=== PATIENT | female | born 1965 | race Caucasian/White ===

== ENCOUNTER 2016-11-18 03:08 | Inpatient (IN) | payer OTHER ==
[~2016-11-18] VITALS: Ht 162.6 cm; Wt 103.6 kg
[2016-11-18] MEDS ORDERED: NEURONTIN 300300 MG PO (04:18)
[2016-11-18] MEDS ORDERED: NOVOLIN 70100 UNIT/1 SQ (04:19)
[2016-11-18] MEDS ORDERED: NOVOLOG MI100 UNIT/2 SQ ×2 (04:19→04:25)
[2016-11-18] MEDS ORDERED: VENTOLIN HFA 66.7 GM INH (04:20)
[2016-11-18] MEDS ORDERED: LASIX 40 MG TAB40 MG PO (04:20)
[2016-11-18] MEDS ORDERED: BREO ELLIPTA 11 EACH INH (04:20)
[2016-11-18] MEDS ORDERED: KLOR-CON M1010 MEQ PO (04:21)
[2016-11-18] MEDS ORDERED: ZANTAC150 MG PO (04:21)
[2016-11-18] MEDS ORDERED: SYMBICORT 160-1 INHA INH (04:22)
[2016-11-18] MEDS ORDERED: COZAAR25 MG PO (04:24)
[2016-11-18] MEDS ORDERED: BUSPIRONE HCL15 MG PO (04:24)
[2016-11-18] MEDS ORDERED: IPRAT-ALBUT 0.5-3 ML INH (04:27)
[2016-11-18] MEDS ORDERED: CELEXA40 MG PO (04:30)
[2016-11-18 11:46] LABS: BUN/CREATININE RATIO 26 (0-10)
[2016-11-18 12:36] LABS: HEMOGLOBIN 9.6 gm/dl (12.3-15.3); RED BLOOD COUNT 2.96 M/UL (4.00-5.10); WHITE BLOOD COUNT 2.3 K/UL (4.5-11.0)
[2016-11-18 13:48] LABS: LDH, BODY FLUID 52 U/L; TOTAL PROTEIN, BODY FLUID 0.8 gm/dL
[2016-11-18 14:44] LABS: BODY FLUID SOURCE PLEURAL
[2016-11-19 03:54] LABS: HEMOGLOBIN 9.7 gm/dl (12.3-15.3); RED BLOOD COUNT 3.05 M/UL (4.00-5.10); WHITE BLOOD COUNT 7.3 K/UL (4.5-11.0)
[2016-11-19 04:10] LABS: BUN/CREATININE RATIO 19 (0-10)
[2016-11-20 04:30] LABS: BUN/CREATININE RATIO 20 (0-10)
[2016-11-20 04:41] LABS: HEMOGLOBIN 9.3 gm/dl (12.3-15.3); RED BLOOD COUNT 2.92 M/UL (4.00-5.10)
[2016-11-20 04:44] LABS: WHITE BLOOD COUNT 4.7 K/UL (4.5-11.0)
== END 2016-11-21 14:43 | disposition home health service (06) | DRG 291 ==
LOC: MED SURG 4 04:16 → PROG CARE 04:16 → MED SURG 4 11-19 10:42
PROVIDERS: Hospitalist; Nurse Practitioner; ADMIT Internal Medicine
PROC: 0W993ZZ Drainage of Right Pleural Cavity, Percutaneous Approach (ICD-10-PCS; principal; 2016-11-18)
DX: I11.0 Hypertensive heart disease with heart failure (principal); J96.01 Acute respiratory failure with hypoxia; J81.1 Chronic pulmonary edema; J90 Pleural effusion, not elsewhere classified; Z68.41 Body mass index [BMI] 40.0-44.9, adult; J44.1 Chronic obstructive pulmonary disease with (acute) exacerbation; D61.818 Other pancytopenia; I50.33 Acute on chronic diastolic (congestive) heart failure; D50.9 Iron deficiency anemia, unspecified; E11.649 Type 2 diabetes mellitus with hypoglycemia without coma; E11.40 Type 2 diabetes mellitus with diabetic neuropathy, unspecified; F32.9 Major depressive disorder, single episode, unspecified; B18.2 Chronic viral hepatitis C; D69.6 Thrombocytopenia, unspecified; Z51.89 Encounter for other specified aftercare; R53.81 Other malaise; K21.9 Gastro-esophageal reflux disease without esophagitis; F41.9 Anxiety disorder, unspecified; Z87.01 Personal history of pneumonia (recurrent); K76.9 Liver disease, unspecified; E66.01 Morbid (severe) obesity due to excess calories; Z99.81 Dependence on supplemental oxygen; Z80.9 Family history of malignant neoplasm, unspecified; Z87.891 Personal history of nicotine dependence; Z88.0 Allergy status to penicillin; Z88.2 Allergy status to sulfonamides; Z79.899 Other long term (current) drug therapy; Z79.4 Long term (current) use of insulin
CPT/HCPCS: ECHO; 36415; 71010; 71020; 76705; 80048; 80053; 81001; 82150; 82607; 82728; 82746; 82945; 82962; 83540; 83615; 83735; 83880; 83986; 84075; 84157; 84443; 85027; 85045; 85610; 86039; 87040; 87070; 87390; 89051; 93306; 94640; 97110; 97535; J1756; J1940; J1956; J7050

== ENCOUNTER → 2017-01-02 | Outpatient (CLI) | payer OTHER ==
[~2017-01-02] MED LIST: ADVAIR 250-501 EACH INH; BREO ELLIPTA 11 EACH INH; BUSPIRONE HCL15 MG PO; CELEXA40 MG PO; COZAAR25 MG PO; FERROUS SULFAT325 MG PO; IPRAT-ALBUT 0.5-3 ML INH; KLOR-CON M1010 MEQ PO; LASIX 40 MG TAB40 MG PO; NEURONTIN 300300 MG PO; NOVOLIN 70100 UNIT/1 SQ; NOVOLOG MI100 UNIT/2 SQ; SYMBICORT 160-1 INHA INH; VENTOLIN HFA 66.7 GM INH; ZANTAC150 MG PO; ZESTRIL5 MG PO
== END ==
LOC: EXRD 10:58
DX: J90 Pleural effusion, not elsewhere classified (principal); R91.8 Other nonspecific abnormal finding of lung field
CPT/HCPCS: 71020

== ENCOUNTER → 2017-01-02 | Outpatient (CLI) | payer OTHER | LOC: HEART 5 09:30 | DX: R06.02 Shortness of breath (principal) | CPT/HCPCS: 94060; 94729 ==

== ENCOUNTER 2017-01-17 20:43 | Inpatient (IN) | payer OTHER ==
[~2017-01-17] VITALS: Ht 162.6 cm; Wt 98.4 kg
[~2017-01-17 20:43] MED LIST changes: -ADVAIR 250-501 EACH INH; -FERROUS SULFAT325 MG PO; -ZESTRIL5 MG PO
[2017-01-17] MEDS ORDERED: ZESTRIL5 MG PO (23:44)
[2017-01-17] MEDS ORDERED: FERROUS SULFAT325 MG PO (23:45)
[2017-01-17] MEDS ORDERED: NEURONTIN 300300 MG PO (23:54)
[2017-01-17] MEDS ORDERED: ADVAIR 250-501 EACH INH (23:54)
[2017-01-18 01:29] LABS: HEMOGLOBIN 9.9 gm/dl (12.3-15.3)
[2017-01-18 06:13] LABS: HEMOGLOBIN 10.2 gm/dl (12.3-15.3); RED BLOOD COUNT 3.09 M/UL (4.00-5.10); WHITE BLOOD COUNT 15.3 K/UL (4.5-11.0)
[2017-01-19 03:46] LABS: HEMOGLOBIN 10.7 gm/dl (12.3-15.3); RED BLOOD COUNT 3.25 M/UL (4.00-5.10)
[2017-01-19 09:45] LABS: HEMOGLOBIN 10.3 gm/dl (12.3-15.3)
[2017-01-19 17:14] LABS: HEMOGLOBIN 10.1 gm/dl (12.3-15.3)
[2017-01-20 01:06] LABS: HEMOGLOBIN 10.1 gm/dl (12.3-15.3)
[2017-01-20 03:48] LABS: HEMOGLOBIN 9.9 gm/dl (12.3-15.3); RED BLOOD COUNT 3.03 M/UL (4.00-5.10)
[2017-01-20 04:03] LABS: WHITE BLOOD COUNT 17.7 K/UL (4.5-11.0)
[2017-01-20 09:21] LABS: HEMOGLOBIN 9.9 gm/dl (12.3-15.3)
[2017-01-20 21:40] LABS: HEMOGLOBIN 9.8 gm/dl (12.3-15.3)
[2017-01-21 04:00] LABS: HEMOGLOBIN 9.6 gm/dl (12.3-15.3); RED BLOOD COUNT 2.91 M/UL (4.00-5.10); WHITE BLOOD COUNT 16.9 K/UL (4.5-11.0)
[2017-01-21 08:59] LABS: HEMOGLOBIN 9.9 gm/dl (12.3-15.3)
[2017-01-22 03:21] LABS: HEMOGLOBIN 10.2 gm/dl (12.3-15.3); RED BLOOD COUNT 3.06 M/UL (4.00-5.10); WHITE BLOOD COUNT 14.8 K/UL (4.5-11.0)
[2017-01-23 03:12] LABS: HEMOGLOBIN 10.2 gm/dl (12.3-15.3); RED BLOOD COUNT 3.13 M/UL (4.00-5.10)
[2017-01-24 04:49] LABS: HEMOGLOBIN 10.5 gm/dl (12.3-15.3); RED BLOOD COUNT 3.17 M/UL (4.00-5.10); WHITE BLOOD COUNT 18.2 K/UL (4.5-11.0)
--- NOTE | 2017-01-24 11:52 | NUR ---
BRIEF O2 DESATURATION AT 0800 WITH TURN. SAT DOWN TO 71%, BACK UP TO 89% WITHIN 3-[address] GOMEZ HERE, AWARE. AGAIN AT 0855 PT DESATURATED SPONTANEOUSLY. 02 SAT 78-89% FROM 9523-1712. DR. GOMEZ AGAIN NOTIFIED, ATIVAN GIVEN ORDERED. DR. DELAROSA HERE AND MORPHINE GIVEN PER OCT. PT AMBU AND LAVAGED/SUCTIONED ETT AND REPOSITIONED TO HIGH FOWLERS POSITION. DR. GOMEZ BACK AT BEDSIDE AT 0945 AND ZEMURON GIVEN. O2 SAT UP TO 95% WITHIN 2 MINUTES. ORDER TO START ZEMURON DRIP PER PROTOCOL.
[2017-01-25 03:54] LABS: HEMOGLOBIN 9.7 gm/dl (12.3-15.3); RED BLOOD COUNT 2.86 M/UL (4.00-5.10); WHITE BLOOD COUNT 16.5 K/UL (4.5-11.0)
[2017-01-25 16:33] LABS: HEMOGLOBIN 8.6 gm/dl (12.3-15.3); RED BLOOD COUNT 2.61 M/UL (4.00-5.10)
[2017-01-25 16:36] LABS: WHITE BLOOD COUNT 10.2 K/UL (4.5-11.0)
[2017-01-25 20:54] LABS: HEMOGLOBIN 8.4 gm/dl (12.3-15.3); RED BLOOD COUNT 2.57 M/UL (4.00-5.10)
[2017-01-26 03:46] LABS: HEMOGLOBIN 10.1 gm/dl (12.3-15.3)
[2017-01-26 03:48] LABS: RED BLOOD COUNT 3.2 M/UL (4.00-5.10)
[2017-01-27 03:42] LABS: HEMOGLOBIN 10.3 gm/dl (12.3-15.3); RED BLOOD COUNT 3.25 M/UL (4.00-5.10); WHITE BLOOD COUNT 11.8 K/UL (4.5-11.0)
[2017-01-28 03:31] LABS: HEMOGLOBIN 10.8 gm/dl (12.3-15.3); RED BLOOD COUNT 3.44 M/UL (4.00-5.10)
[2017-01-29 03:50] LABS: HEMOGLOBIN 11.4 gm/dl (12.3-15.3); RED BLOOD COUNT 3.58 M/UL (4.00-5.10); WHITE BLOOD COUNT 22.9 K/UL (4.5-11.0)
[2017-01-29 04:02] LABS: BUN/CREATININE RATIO 72 (0-10)
[2017-01-30 04:15] LABS: HEMOGLOBIN 11.3 gm/dl (12.3-15.3); RED BLOOD COUNT 3.54 M/UL (4.00-5.10); WHITE BLOOD COUNT 22.1 K/UL (4.5-11.0)
[2017-01-31 03:37] LABS: HEMOGLOBIN 11.1 gm/dl (12.3-15.3); RED BLOOD COUNT 3.47 M/UL (4.00-5.10); WHITE BLOOD COUNT 21.9 K/UL (4.5-11.0)
[2017-02-01 04:04] LABS: HEMOGLOBIN 11.7 gm/dl (12.3-15.3); RED BLOOD COUNT 3.61 M/UL (4.00-5.10)
[2017-02-01 19:28] LABS: URINE CREATININE 62.4 mg/dL
[2017-02-02 04:32] LABS: HEMOGLOBIN 11.7 gm/dl (12.3-15.3); RED BLOOD COUNT 3.62 M/UL (4.00-5.10); WHITE BLOOD COUNT 17.7 K/UL (4.5-11.0)
[2017-02-03 05:00] LABS: HEMOGLOBIN 11.6 gm/dl (12.3-15.3); RED BLOOD COUNT 3.54 M/UL (4.00-5.10); WHITE BLOOD COUNT 14.3 K/UL (4.5-11.0)
[2017-02-04 04:40] LABS: HEMOGLOBIN 11.1 gm/dl (12.3-15.3); RED BLOOD COUNT 3.41 M/UL (4.00-5.10); WHITE BLOOD COUNT 17.3 K/UL (4.5-11.0)
[2017-02-04 15:51] LABS: HEMOGLOBIN 11.1 gm/dl (12.3-15.3); RED BLOOD COUNT 3.44 M/UL (4.00-5.10); WHITE BLOOD COUNT 17.8 K/UL (4.5-11.0)
[2017-02-04 17:17] LABS: HEMOGLOBIN 9.8 gm/dl (12.3-15.3)
[2017-02-04 23:08] LABS: HEMOGLOBIN 9.9 gm/dl (12.3-15.3)
[2017-02-05 05:05] LABS: HEMOGLOBIN 9.8 gm/dl (12.3-15.3); RED BLOOD COUNT 3.02 M/UL (4.00-5.10); WHITE BLOOD COUNT 17.3 K/UL (4.5-11.0)
[2017-02-05 11:06] LABS: HEMOGLOBIN 9.5 gm/dl (12.3-15.3)
[2017-02-06 03:32] LABS: HEMOGLOBIN 8.9 gm/dl (12.3-15.3); RED BLOOD COUNT 2.74 M/UL (4.00-5.10)
[2017-02-06 03:37] LABS: WHITE BLOOD COUNT 24.1 K/UL (4.5-11.0)
[2017-02-06 14:02] LABS: HEMOGLOBIN 7.6 gm/dl (12.3-15.3); WHITE BLOOD COUNT 24.5 K/UL (4.5-11.0)
[2017-02-06 14:08] LABS: RED BLOOD COUNT 2.33 M/UL (4.00-5.10)
== END 2017-02-06 18:10 | disposition expired | DRG 870 ==
LOC: MED SURG 4 20:43 → CCU 23:02
PROVIDERS: Hospitalist; Internal Medicine; Internal Medicine Critical Care Medicine; Internal Medicine Nephrology; Internal Medicine Pulmonary Disease; ADMIT Internal Medicine
PROC: 05HM33Z Insertion of Infusion Device into Right Internal Jugular Vein, Percutaneous Approach (ICD-10-PCS; 2017-01-19)
PROC: 5A1955Z Respiratory Ventilation, Greater than 96 Consecutive Hours (ICD-10-PCS; principal; 2017-01-23)
PROC: 0BH17EZ Insertion of Endotracheal Airway into Trachea, Via Natural or Artificial Opening (ICD-10-PCS; 2017-01-23)
PROC: 3E0436Z Introduction of Nutritional Substance into Central Vein, Percutaneous Approach (ICD-10-PCS; 2017-01-24)
PROC: 30233N1 Transfusion of Nonautologous Red Blood Cells into Peripheral Vein, Percutaneous Approach (ICD-10-PCS; 2017-01-25)
PROC: 30233R1 Transfusion of Nonautologous Platelets into Peripheral Vein, Percutaneous Approach (ICD-10-PCS; 2017-01-25)
PROC: 30233R1 Transfusion of Nonautologous Platelets into Peripheral Vein, Percutaneous Approach (ICD-10-PCS; 2017-01-27)
PROC: 4A10X4Z Monitoring of Central Nervous Electrical Activity, External Approach (ICD-10-PCS; 2017-02-01)
PROC: 30233K1 Transfusion of Nonautologous Frozen Plasma into Peripheral Vein, Percutaneous Approach (ICD-10-PCS; 2017-02-02)
PROC: 30233R1 Transfusion of Nonautologous Platelets into Peripheral Vein, Percutaneous Approach (ICD-10-PCS; 2017-02-03)
PROC: 30233K1 Transfusion of Nonautologous Frozen Plasma into Peripheral Vein, Percutaneous Approach (ICD-10-PCS; 2017-02-04)
PROC: 30233K1 Transfusion of Nonautologous Frozen Plasma into Peripheral Vein, Percutaneous Approach (ICD-10-PCS; 2017-02-06)
DX: A41.9 Sepsis, unspecified organism (principal); J96.01 Acute respiratory failure with hypoxia; J18.9 Pneumonia, unspecified organism; R65.21 Severe sepsis with septic shock; N17.0 Acute kidney failure with tubular necrosis; K72.00 Acute and subacute hepatic failure without coma; E43 Unspecified severe protein-calorie malnutrition; G92 Toxic encephalopathy; R04.2 Hemoptysis; I13.0 Hypertensive heart and chronic kidney disease with heart failure and stage 1 through stage 4 chronic kidney disease, or unspecified chronic kidney disease; I50.32 Chronic diastolic (congestive) heart failure; N39.0 Urinary tract infection, site not specified; N17.9 Acute kidney failure, unspecified; C34.12 Malignant neoplasm of upper lobe, left bronchus or lung; E87.1 Hypo-osmolality and hyponatremia; R18.8 Other ascites; K76.6 Portal hypertension; N13.30 Unspecified hydronephrosis; E66.2 Morbid (severe) obesity with alveolar hypoventilation; E87.2 Acidosis; K62.5 Hemorrhage of anus and rectum; E27.40 Unspecified adrenocortical insufficiency; D62 Acute posthemorrhagic anemia; I95.9 Hypotension, unspecified; Z90.710 Acquired absence of both cervix and uterus; K21.9 Gastro-esophageal reflux disease without esophagitis; F41.9 Anxiety disorder, unspecified; K76.9 Liver disease, unspecified; J44.9 Chronic obstructive pulmonary disease, unspecified; Z99.81 Dependence on supplemental oxygen; Z88.0 Allergy status to penicillin; Z88.2 Allergy status to sulfonamides; Z88.8 Allergy status to other drugs, medicaments and biological substances; Z87.891 Personal history of nicotine dependence; Z79.4 Long term (current) use of insulin; E11.22 Type 2 diabetes mellitus with diabetic chronic kidney disease; N18.9 Chronic kidney disease, unspecified; E86.0 Dehydration; Z68.37 Body mass index [BMI] 37.0-37.9, adult; R01.1 Cardiac murmur, unspecified; K74.60 Unspecified cirrhosis of liver; R16.1 Splenomegaly, not elsewhere classified; K52.9 Noninfective gastroenteritis and colitis, unspecified; K31.89 Other diseases of stomach and duodenum; R04.0 Epistaxis; D50.9 Iron deficiency anemia, unspecified; K80.20 Calculus of gallbladder without cholecystitis without obstruction; E87.70 Fluid overload, unspecified; Z66 Do not resuscitate; Z51.5 Encounter for palliative care; E11.65 Type 2 diabetes mellitus with hyperglycemia; T38.0X5A Adverse effect of glucocorticoids and synthetic analogues, initial encounter; Y92.230 Patient room in hospital as the place of occurrence of the external cause; T78.1XXA Other adverse food reactions, not elsewhere classified, initial encounter; E87.6 Hypokalemia; E83.41 Hypermagnesemia; D69.6 Thrombocytopenia, unspecified; K72.10 Chronic hepatic failure without coma; B18.2 Chronic viral hepatitis C
CPT/HCPCS: 31500; 36415; 36430; 36600; 70450; 71010; 71020; 74000; 76705; 80048; 80053; 80074; 80202; 80307; 81001; 82009; 82043; 82140; 82248; 82533; 82550; 82553; 82570; 82575; 82607; 82747; 82803; 82962; 83036; 83540; 83605; 83615; 83690; 83735; 83880; 83921; 84100; 84132; 84439; 84443; 84484; 85014; 85018; 85025; 85027; 85384; 85610; 85730; 86022; 86140; 86850; 86900; 86901; 86920; 86927; 87040; 87070; 87081; 87086; 87205; 90935; 94002; 94003; 94640; 94660; 94664; 95824; 97535; A4628; C1751; C1752; C9113; G0480; J0330; J0610; J0692; J0834; J1205; J1644; J1720; J1815; J1940; J1956; J2060; J2248; J2270; J2405; J2550; J2765; J3370; J3430; J3475; J3480; J7030; J7040; J7042; J7050; J7070; P9016; P9017; P9035; P9045; P9047